=== PATIENT | female | born 1990 | race Asian ===

== ENCOUNTER 2020-08-08 18:36 | Emergency (ER) | payer BC, SELFPAY ==
[2020-08-08 18:56] VITALS: BP 122/86; PULSE 138; RESP 20; TEMP 37; O2SAT 98
--- NOTE | 2020-08-08 19:46 | PC.NURSE ---
Addendum entered by Woo Jo RN 08/08/20 19:56: At this time, pt denies suicidal or homicidal ideations. Reports increase in family troubles . Original Note: Pt to ED H2 via w/c. Pt no longer crying, reports is just having lots of anxiety lately .
[2020-08-08 20:30] VITALS: BP 116/86; PULSE 91; RESP 12; O2SAT 100
--- NOTE | 2020-08-08 20:39 | ED.ANXIETY ---
HPI - Anxiety General Chief Complaint: Anxiety Stated Complaint: psych symptoms Time Seen by Provider: 08/08/20 20:19 Source: patient Mode of arrival: ambulatory Limitations: no limitations History of Present Illness HPI narrative: Patient is 29 years old [place] female presents with anxiety and distress. Patient report that she been taking care of her family or not doing well and nobody else is able to help them except her. Lately she been overwhelmed, unable to manage to take care of all the travel be going through. Patient denies any suicidal or homicidal ideation Review of Systems Review of Systems: Narrative: CONSTITUTIONAL: Denies fever, chills, or sweats. EYES: Denies visual changes, redness, or discharge. ENT: Denies rhinorrhea, congestion, sore throat, or otalgia. CARDIOVASCULAR: Denies chest pain, palpitations, or edema. RESPIRATORY: Denies cough or dyspnea. GASTROINTESTINAL: Denies abdominal pain, nausea, vomiting, or diarrhea. GENITOURINARY: Denies dysuria or hematuria. SKIN: Denies rash or itching. MUSCULOSKELETAL: Denies back pain, joint pain, or myalgia. NEUROLOGIC: Denies headache, numbness, or weakness. PSYCHIATRIC: Denies anxiety or depression. Exam Narrative: Exam Narrative: General appearance: Well-developed, well-nourished, very anxious, very restless Skin: Normal color Head: Normocephalic, nontraumatic Eyes: Clear conjunctiva ENT: Oropharynx normal, ears normal, nose normal Neck: Supple, nontender Chest and respiratory: Airway patent, no respiratory distress, no accessory muscle use Heart: Regular rate/rhythm Abdomen: Soft, nontender, no organomegaly, quiet bowel sounds Vascular: Normal peripheral pulses, normal capillary refill. Musculoskeletal: Normal range of motion, nontender back Neurologic: Alert and oriented ?3, [employer] is normal as tested, no gross motor deficit Course Course Emergency Course: Stable DIAGNOSTIC IMAGING MANAGER/PA Physician Supervision Patient feeling okay, patient was evaluated by crisis and ready to go home. To follow-up as outpatient Reevaluation(s) Date: 08/08/20 Time: 21:40 Vital Signs Vital signs: Vital Signs Temperature 37.0 C 08/08/20 18:56 Pulse Rate 138 H 08/08/20 18:56 Respiratory Rate 20 08/08/20 18:56 Blood Pressure 122/86 08/08/20 18:56 Pulse Oximetry 98 08/08/20 18:56 Temperature 37.0 C 08/08/20 18:56 Pulse Rate 138 H 08/08/20 18:56 Respiratory Rate 20 08/08/20 18:56 Blood Pressure 122/86 08/08/20 18:56 Pulse Oximetry 98 08/08/20 18:56 MDM - Anxiety MDM Narrative Medical decision making narrative: Patient presents with anxiety and distress Patient denies any suicidal or homicidal ideation. Differential Diagnosis Differential diagnosis: Likely hyperventilation, panic disorder and acute anxiety Critical Care Time Critical Care Time Critical Care Time: Yes Total Critical Care Time: 20 Discharge Plan Discharge Clinical Impression: Acute anxiety Patient Disposition: Home, Self-Care Condition: Stable Instructions: Panic Disorder (ED), Anxiety (ED) Additional Instructions: Return if symptoms are worsening , call your family physician for appointment, take Tylenol as as needed for aches and pain, continue home medications. Prescriptions: New clonazepam 0.25 mg tablet,disintegrating 0.25 mg PO DAILY Qty: 14 RF: 0 Follow-up/Referrals: PHYSICIAN,TRANSFER DRIVER [Primary Care Provider] - Elie Perez MD [Physician] -
--- NOTE | 2020-08-08 21:07 | PC.NURSE ---
toll test worker at Pt. bedside. Unable to obtain lab work at this time.
--- NOTE | 2020-08-08 21:12 | PC.NURSE ---
crisis at bedside with pt. verbalized that pt is stable and able to go home. she was given resources and follow up out patient.
== END 2020-08-08 21:56 | disposition home or self-care (01) ==
PROVIDERS: Emergency Provider Emergency Medicine
DX: F41.9 Anxiety disorder, unspecified (principal)
CPT/HCPCS: 99284